=== PATIENT | male | born 2000 | race Caucasian/White ===

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

== ENCOUNTER → 2022-04-19 | Emergency (ER) | payer OTHER ==
[~2022-04-19] VITALS: Ht 188 cm; Wt 86.2 kg
== END | disposition home or self-care (01) ==
LOC: ER 13:57
DX: B34.9 Viral infection, unspecified (principal); R22.0 Localized swelling, mass and lump, head; Z20.822 Contact with and (suspected) exposure to COVID-19

== ENCOUNTER 2022-08-10 14:29 | Emergency (ER) | payer OTHER ==
[~2022-08-10] VITALS: Ht 188 cm; Wt 86.2 kg
== END 2022-08-10 23:32 | disposition home or self-care (01) ==
LOC: ER 14:29
DX: K29.70 Gastritis, unspecified, without bleeding (principal)

== ENCOUNTER 2023-02-28 05:36 | Emergency (ER) | payer OTHER ==
[~2023-02-28] VITALS: Ht 188 cm; Wt 83.9 kg
== END 2023-02-28 07:32 | disposition home or self-care (01) ==
LOC: ER 05:36
DX: M54.16 Radiculopathy, lumbar region (principal)

== ENCOUNTER 2023-04-20 21:27 | Emergency (ER) | payer OTHER ==
[~2023-04-20] VITALS: Ht 182.9 cm; Wt 86.2 kg
== END 2023-04-21 00:34 | disposition home or self-care (01) ==
LOC: ER 21:27
DX: M54.16 Radiculopathy, lumbar region (principal)

== ENCOUNTER → 2023-06-06 | Emergency (ER) | payer OTHER ==
[~2023-06-06] VITALS: Ht 188 cm; Wt 81.6 kg
[~2023-06-06] MED LIST: VISTARIL25 MG PO
== END | disposition left against medical advice (07) ==
LOC: ER 04:52
DX: Z53.21 Procedure and treatment not carried out due to patient leaving prior to being seen by health care provider (principal)

== ENCOUNTER 2023-06-15 06:26 | Emergency (ER) | payer OTHER ==
[~2023-06-15] VITALS: Ht 177.8 cm; Wt 74.8 kg
[2023-06-15 08:17] LABS: HEMATOCRIT 45.4 % (39.0-48.0); HEMOGLOBIN 15.8 g/dL (13-16.00); MEAN CELL VOLUME 91.1 fL (80.0-100.00); MEAN CORPUSCULAR HEMOGLOBIN 31.6 pg (27.00-32.0); MEAN CORPUSCULAR HGB CONC 34.7 g/dl (32.0-36.0); PLATELET COUNT 165 K/uL (150-450); RED BLOOD COUNT 4.98 M/uL (4.00-6.00); RED CELL DISTRIBUTION WIDTH 12.6 % (11.5-14.5)
[2023-06-15 11:17] LABS: CALCIUM 9.5 mg/dL (8.5-10.1); GFR 91.04; POTASSIUM 4.76 mEq/L (3.5-5.1)
== END 2023-06-15 09:42 | disposition home or self-care (01) ==
LOC: ER 06:27
PROVIDERS: General Practice
DX: R51.9 Headache, unspecified (principal)

== ENCOUNTER 2023-11-07 03:52 | Emergency (ER) | payer OTHER ==
[~2023-11-07] VITALS: Ht 188 cm; Wt 86.2 kg
[2023-11-07] MEDS ORDERED: FLUOXETINE HCL20 MG PO (04:07)
[2023-11-07] MEDS ORDERED: CEFTRIAXONE SODIUM 2,000 MG VIAL IM STA (04:32)
[2023-11-07] MEDS ORDERED: HYDROCODONE/CHLORPHEN P-STIREX 5 ML ML PO STA (04:33)
[2023-11-07] MEDS ORDERED: CEFTRIAXONE SODIUM 2,000 MG VIAL ONE (04:37)
== END 2023-11-07 04:52 | disposition home or self-care (01) ==
LOC: ER 03:54
DX: J03.90 Acute tonsillitis, unspecified (principal)

== ENCOUNTER 2024-02-10 06:23 | Emergency (ER) | payer OTHER ==
[~2024-02-10] VITALS: Ht 188 cm; Wt 86.2 kg
[~2024-02-10 06:23] MED LIST changes: +FLUOXETINE HCL20 MG PO
[2024-02-10 06:33] VITALS: BP 109/74; O2SAT 98
[2024-02-10] MEDS ORDERED: SILENOR3 MG PO (06:33)
[2024-02-10] MEDS ORDERED: CEFTRIAXONE SODIUM 1,000 MG VIAL IM STA (08:17)
[2024-02-10] MEDS ORDERED: KETOROLAC TROMETHAMINE 30 MG VIAL IM STA (08:17)
== END 2024-02-10 09:44 | disposition home or self-care (01) ==
LOC: ER 06:25
DX: H92.01 Otalgia, right ear (principal)
CPT/HCPCS: 96372; 99282; J0696; J1885

== ENCOUNTER 2024-02-24 02:52 | Emergency (ER) | payer OTHER ==
[~2024-02-24] VITALS: Ht 188 cm; Wt 90.7 kg
[~2024-02-24 02:52] MED LIST changes: +SILENOR3 MG PO
[2024-02-24] MEDS ORDERED: GUAIFENESIN 200 MG/10 ML BLIST.PACK PO STA (04:13)
[2024-02-24] MEDS ORDERED: ALBUTEROL SULFATE 3 ML/2.5 MG AMPUL.NEB IH SCH (04:15)
[2024-02-24] MEDS ORDERED: ACETAMINOPHEN 500 MG GEL..CAP PO ONE (04:15)
[2024-02-24] MEDS ORDERED: ALBUTEROL2.5 MG/3 M IH (05:50)
[2024-02-24 06:30] LABS: ABG PH 7.455 (7.35-7.45); ABG pCO2 34.3 mmHg (35-45)
[2024-02-24 06:31] LABS: BASE EXCESS 0.3 mmol/l; BICARBONATE 23.6 mmol/l (23-25); SaO2 97.4 %; Tco2 24.7 mmol/l; allen test SATISFACTORY; o2 21 %; puncture site RADIAL RIGHT
== END 2024-02-24 05:55 | disposition home or self-care (01) ==
LOC: ER 02:55
PROVIDERS: General Practice
DX: A49.3 Mycoplasma infection, unspecified site (principal); R50.9 Fever, unspecified

== ENCOUNTER 2024-05-08 21:38 | Emergency (ER) | payer OTHER ==
[~2024-05-08] VITALS: Ht 188 cm; Wt 90.7 kg
[~2024-05-08 21:38] MED LIST changes: +ALBUTEROL2.5 MG/3 M IH
[2024-05-09] MEDS ORDERED: KETOROLAC TROMETHAMINE 60 MG VIAL IM STA (03:28)
[2024-05-09] MEDS ORDERED: ORPHENADRINE CITRATE 30 MG/ML AMPUL IM STA (03:29)
[2024-05-09] MEDS ORDERED: NORFLEX100MG PO (03:35)
[2024-05-09] MEDS ORDERED: KETO10TA2 PO (03:35)
[2024-05-09] MEDS ORDERED: ORPHENADRINE CITRATE 30 MG/ML AMPUL ONE (03:38)
[2024-05-09] MEDS ORDERED: KETOROLAC TROMETHAMINE 60 MG VIAL IM ONE (03:39)
== END 2024-05-09 03:52 ==
LOC: ER 21:41
DX: M54.50 Low back pain, unspecified (principal)